=== PATIENT | female | born 1960 | race African-American/Black ===

== ENCOUNTER 2016-05-24 14:37 | Emergency (ER) | payer SELFPAY ==
[2016-05-25] MEDS ORDERED: NPH10OT BOTH EARS (10:16)
== END 2016-05-24 15:10 | disposition left against medical advice (07) ==
LOC: E/R 14:37
DX: Z53.21 Procedure and treatment not carried out due to patient leaving prior to being seen by health care provider (principal)

== ENCOUNTER 2016-05-25 09:08 | Emergency (ER) | payer OTHER ==
[~2016-05-25] VITALS: Ht 162.6 cm; Wt 92.0 kg
[2016-05-25 09:11] VITALS: Ht 162.6 cm; Wt 92.0 kg
[2016-05-25] MEDS ORDERED: NPH10OT BOTH EARS (10:16)
--- NOTE | 2016-05-25 10:47 | ERD ---
DATE OF SERVICE: HISTORY OF PRESENT ILLNESS: The patient is a 55-year-old female coming in complaining of a possible foreign body in her left ear for the last 3 months. The patient states that she was seen at her [facility] doctor, who was unable to see anything. She was given antibiotics and drops. She still feels that there is a foreign body moving around in her ear. She is requesting ear lavage at this time. S he has not had any bleeding from her ears and no decrease in hearing, no headaches, no vomiting, no fevers. PAST MEDICAL HISTORY: Denies any medical problems. ALLERGIES: DENIES ALLERGIES TO MEDICATIONS. SURGICAL HISTORY: Denies. SOCIAL HISTORY: Denies. REVIEW OF SYSTEMS: A 12-point review of systems was done. Refer to HPI for positives, all other sy stems negative. PHYSICAL EXAMINATION: VITAL SIGNS: Temperature is 98.2, pulse 90, blood pressure is 152/70, respiratory rate 16, O2 satur ation 100% on room air. Pain intensity is 4/10. GENERAL: The patient is well-appearing, well-nourished, no acute distress. CARDIAC EXAMINATION: Regular rate and rhythm. No murmurs, clicks, rubs or gallops. No S3 or S4. LUNG EXAMINATION: Clear to auscultation bilaterally. There are no rales, wheezes or rhonchi. HEENT EXAMINATION: Atraumatic. Conjunctivae are pink. Pupils equal, round, and reactive to light. Th ere is no scleral icterus. Tympanic membranes clear bilaterally. Oropharynx clear. No nystagmus or photophobia. No foreign body seen. No excessive cerumen impaction. No erythema or changes noted to the TM. SKIN EXAMINATION: There is no apparent rash or petechia. The skin is warm and dry. EMERGENCY ROOM COURSE: The patient had ear lavage done bilaterally in the ER. No foreign bodies ext racted. DIAGNOSIS: Ear pain. MEDICAL DECISION MAKING: The patient may have early otitis externa. I will treat with antibiotic d rops; however, I do not feel that there is otitis media or concern for mastoiditis or foreign body w ithin the ear. The patient's exam is not concerning. The patient's vital signs are stable. The pa tient is nontoxic. DISCHARGE: The patient is discharged stable. The patient is given a prescription for Cortisporin a nd told to follow up with primary care within 1 to 2 days for reevaluation. The patient was told if symptoms progress or worsen to return to the ER. All other questions answered at time of discharge . Discharge summary given at the time of departure. The patient understood and complied with plan. Dictated By: YEN PLASCENCIA/SOHAM Conf#: [id number] DID#: [id number]
== END 2016-05-25 10:39 | disposition home or self-care (01) ==
LOC: FTE 09:08
DX: H92.02 Otalgia, left ear (principal); X58.XXXA Exposure to other specified factors, initial encounter; Y92.9 Unspecified place or not applicable

== ENCOUNTER 2016-08-08 18:38 | Emergency (ER) | payer OTHER ==
[~2016-08-08] VITALS: Ht 162.6 cm; Wt 90.0 kg
[~2016-08-08 18:38] MED LIST: NPH10OT BOTH EARS
[2016-08-08 18:44] VITALS: Ht 162.6 cm; Wt 90.0 kg
[2016-08-08] MEDS ORDERED: IBUPROFEN 600 MG TAB PO ONE (19:30)
--- NOTE | 2016-08-08 20:26 | ERD ---
ER Documentation Chief Complaint Date/Time DATE: 08/08/16 TIME: 20:24 Chief Complaint glf-left hand/wrist pain and low back pain (DAPHNE BROWN MD) HPI This 56-year-old female complains of left wrist pain and pain in her sacrum after falling today. She caught herself from hitting her head with her left wrist complains of pain and swelling. She has restricted range of motion weakness or bleeding lacerations. She denies bowel or bladder incontinence, weakness, head injury, loss of consciousness. (DAPHNE BROWN MD) ROS All systems reviewed and are negative except as per history of present illness. (DAPHNE BROWN MD) Medications Home Meds Active Scripts Hydrocodone/Acetaminophen (Calamus 5-325 Tablet) 1 Each Tablet, 1 TAB PO Q6H Y for SEVERE PAIN LEVEL 7-10, #20 TAB Prov:KEYSHA LLANES NP 08/08/16 Ibuprofen* (Motrin*) 600 Mg Tab, 600 MG PO Q6H Y for PAIN AND OR ELEVATED TEMP, #30 TAB Prov:KEYSHA LLANES NP 08/08/16 Neomycin/Polymyxin/Hydrocort* (Cortisporin* Otic) 10 Ml Susp, 4 DROP BOTH EARS QID for 7 Days, EA Prov:SHANELL MATTSON PA-C 05/25/16 Allergies Allergies: Coded Allergies: No Known Allergy (Unverified , 05/25/16) PMhx/Soc History of Surgery: No Anesthesia Reaction: No Hx Neurological Disorder: No Hx Respiratory Disorders: No Hx Cardiac Disorders: No Hx Psychiatric Problems: No Hx Alcohol Use: No Hx Substance Use: No Hx Tobacco Use: No Smoking Status: Never smoker (DAPHNE BROWN MD) Physical Exam Vitals Vital Signs Date Time Temp Pulse Resp B/P Pulse Ox O2 Delivery O2 Flow Rate FiO2 08/08/16 23:05 97.8 64 18 139/81 100 Room Air 08/08/16 18:44 97.5 87 18 143/72 98 (KEYSHA LLANES NP) Physical Exam Const: [] Alert, [id number]. Head: Atraumatic Eyes: Normal Conjunctiva ENT: Normal External Ears, Nose and Mouth. Neck: Full range of motion..~ No meningismus. Resp: Clear to auscultation bilaterally Cardio: Regular rate and rhythm, no murmurs Abd: Soft, non tender, non distended. Normal bowel sounds Skin: No petechiae or rashes Back: No midline or flank tenderness. Tenderness primarily in the coccyx. There is no appreciable lumbar spine tenderness or deformities or midline tenderness or step-offs. Ext: No cyanosis, or edema with some generalized tenderness around the left wrist and distal radius area. There is no restricted range of motion weakness no appreciable snuffbox tenderness. Neur: Awake and alert Psych: Normal Mood and Affect (DAPHNE BROWN MD) Results 24 hrs Current Medications Medications (Trade) Dose Ordered Sig/Martha Route PRN Reason Start Time Stop Time Status Last Admin Dose Admin Ibuprofen (Motrin) 600 mg ONCE ONCE PO 08/08/16 19:30 08/08/16 19:31 DC 08/08/16 19:41 Dr Brown signed out this patient to me, pending xray results, these were reviewed, see below. PROCEDURE: XR Wrist. CLINICAL INDICATION: Fall with left wrist pain. TECHNIQUE: AP, lateral and oblique views of the left wrist were performed. COMPARISON: No prior studies are available for comparison. FINDINGS: Nondisplaced fracture of the distal radial metaphysis with mild cortical disruption at the dorsal aspect. There may be an intra-articular component. There is a nondisplaced fracture at the base of the ulnar styloid. Soft tissue swelling over the dorsal and ventral aspects of the wrist. IMPRESSION: Nondisplaced fractures of the distal radius and ulna. RPTAT: [facility] Physician Adan Date Time Electronically viewed and signed by Physician Adan on 08/08/2016 22:05 RS/ CC: DAPHNE BROWN MD CC: DAPHNE BROWN MD PROCEDURE: X-ray sacrum and coccyx. CLINICAL INDICATION: Fall with pain in the sacrum and coccyx TECHNIQUE: 3 views of the sacrum and coccyx COMPARISON: None. FINDINGS: No acute fracture dislocation. Soft tissues unremarkable. IMPRESSION: No acute fracture. RPTAT: [facility] Physician Adan Date Time Electronically viewed and signed by Physician Adan on 08/08/2016 22:04 RS/ CC: DAPHNE BROWN MD After receiving patients xray report, a sugar tong splint was applied on the patients left wrist. After application of the splint, patient has intact sensation and circulation on distal area of the affected joint. Patient does not complain of numbness or tingling after application of the splint. Patient tolerated procedure well. Sling was given to use afterwards. Prescription was given for ibuprofen for mild to moderate pain, [place] for severe pain, is advised to elevated affected area, apply ice and affected area, follow up with orthopedic doctor within 5-7 days, keep the splint in place. Patient was advised to return to emergency department for any worsening symptoms. No symptoms of compartment syndrome. No symptoms of other neurovascular compromise at this time. She was discharged any stable. (KEYSHA LLANES NP) Procedures/MDM Review of x-rays were signed out to nurse practitioner osei. Patient has signs and symptoms of mechanical fall and left wrist injury and coccygeal injury . (DAPHNE BROWN MD) DAPHNE BROWN MD Aug 08, 2016 20:26 KEYSHA LLANES NP Aug 08, 2016 22:27
--- NOTE | 2016-08-08 22:05 | RADRPT ---
PROCEDURE: X-ray sacrum and coccyx. CLINICAL INDICATION: Fall with pain in the sacrum and coccyx TECHNIQUE: 3 views of the sacrum and coccyx COMPARISON: None. FINDINGS: No acute fracture dislocation. Soft tissues unremarkable. IMPRESSION: No acute fracture. RPTAT: [facility] Physician Adan Date Time Electronically viewed and signed by Shweta Manuel Physician on 08/08/2016 22:04 RS/
--- NOTE | 2016-08-08 22:06 | RADRPT ---
PROCEDURE: XR Wrist. CLINICAL INDICATION: Fall with left wrist pain. TECHNIQUE: AP, lateral and oblique views of the left wrist were performed. COMPARISON: No prior studies are available for comparison. FINDINGS: Nondisplaced fracture of the distal radial metaphysis with mild cortical disruption at the dorsal as pect. There may be an intra-articular component. There is a nondisplaced fracture at the base of t he ulnar styloid. Soft tissue swelling over the dorsal and ventral aspects of the wrist. IMPRESSION: Nondisplaced fractures of the distal radius and ulna. RPTAT: [facility] Physician Adan Date Time Electronically viewed and signed by Physician Adan on 08/08/2016 22:05 RS/
[2016-08-08] MEDS ORDERED: HYDR-906 PO (22:28)
[2016-08-08] MEDS ORDERED: IBUP-1542 PO (22:28)
[2016-08-08 23:05] VITALS: BP 139/81; PULSE 64; RESP 18; TEMP 97.8
== END 2016-08-08 23:05 | disposition home or self-care (01) ==
LOC: FTE 18:38
DX: S52.502A Unspecified fracture of the lower end of left radius, initial encounter for closed fracture (principal); S52.602A Unspecified fracture of lower end of left ulna, initial encounter for closed fracture; S39.92XA Unspecified injury of lower back, initial encounter; W18.39XA Other fall on same level, initial encounter; Y92.9 Unspecified place or not applicable
CPT/HCPCS: 72220